=== PATIENT | female | born 1985 | race Caucasian/White ===

== ENCOUNTER 2019-01-30 21:43 | Emergency (ER) | payer OTHER, MEDICAID, SELFPAY ==
[2019-01-30 22:09] VITALS: BP 113/72; PULSE 78; RESP 18; TEMP 37.7; O2SAT 99
--- NOTE | 2019-01-31 01:58 | ED_ITS ---
HPI - Skin/Abscess/Foreign Bdy General Chief complaint: Skin/Abscess/Foreign Body Stated complaint: WOUNDS UNDER ARMS Time Seen by Provider: 01/30/19 21:55 Source: patient Mode of arrival: Ambulatory Limitations: no limitations History of Present Illness HPI narrative: 33-year-old female daily smoker with history of methamphetamine abuse (smoking) presents with a chief complaint of painful red bumps in her right axilla. She has a small 1 on her left armpit as well but the right side is much worse. She has a low-grade fever in complains of some spontaneous drainage from the right side. She had recently been feeling under the weather for a few days and did not shave her armpits but after 5 days did, she normally does daily. She denies any history of skin infection MD complaint: rash and abscess/boil Onset (ago): day(s) Tetanus up to date: yes Location: RUE Severity: moderate Quality: aching Pain Consistency: constant Exacerbating factors: movement Context: none Associated symptoms: denies other symptoms Treatments prior to arrival: none Related Data Home Medications Medication Instructions Recorded Confirmed insulin aspart U-100 [Novolog #0 07/17/17 U-100 Insulin aspart] insulin glargine [Lantus U-100 #0 07/17/17 Insulin] lisinopril 5 mg PO QDAY #0 07/17/17 Previous Rx's Medication Instructions Recorded doxycycline hyclate 100 mg PO BID #20 tab 01/31/19 Allergies Allergy/AdvReac Type Severity Reaction Status Date / Time No Known Allergies Allergy Uncoded 08/14/17 12:51 Review of Systems Constitutional Constitutional: Denies chills, Denies fatigue, Denies fever(s), Denies frequent falls, Denies lethargy and Denies weakness Eyes Eyes: Denies change in vision, Denies eye discharge, Denies irritation and Denies loss of vision ENT Ears, Nose, Mouth, and Throat: Denies change in voice, Denies dizziness, Denies neck pain, Denies sore throat and Denies throat swelling Cardiovascular Cardiovascular: Denies chest pain, Denies irregular heart rhythm, Denies lightheadedness, Denies palpitations, Denies dyspnea, Denies dyspnea on exertion and Denies orthopnea Respiratory Respiratory: Denies cough, Denies dyspnea, Denies dyspnea on exertion and Denies wheezing Gastrointestinal Gastrointestinal: Denies abdominal pain, Denies change in bowel habits, Denies diarrhea, Denies nausea and Denies vomiting Genitourinary Genitourinary: Denies hematuria, Denies flank pain, Denies urinary incontinence and Denies urinary urgency Musculoskeletal Musculoskeletal: Denies back pain, Denies muscle weakness, Denies neck pain, Denies numbness and Denies tingling Integumentary/Breasts Skin/Breast: Denies pruritus, Reports erythema, Denies rash, Reports skin pain, Reports skin swelling and Denies wounds Neurologic Neurologic: Denies behavioral changes, Denies confusion, Denies dizziness, Denies frequent falls, Denies loss of vision, Denies numbness, Denies tingling and Denies weakness Psychiatric Psychiatric: Denies anxiety, Denies behavioral changes, Denies confusion, Denies depression, Denies homicidal ideation and Denies suicidal ideation Endocrine Endocrine: Denies fatigue, Denies flushing and Denies palpitations Hematologic/Lymphatic Hematologic/Lymphatic: Denies easy bruising Allergic/Immunologic Allergic/Immunologic: Denies urticaria, Denies throat swelling and Denies wheezing [facility] Social History Smoking Status: Current every day smoker Social History Smoking Status: Current every day smoker Exam Narrative Exam Narrative: GEN: AOx3 and in mild distress EYES: Pupils are equal, round, and reactive to light and accommodation. Extraocc ular muscles are intact bilaterally. There is no subconjunctival hemorrhage or exudate. CHEST: Lungs are clear to auscultation bilaterally and free of wheezes, rales, or rhonchi. Heart rate is regular rhythm, there are no murmurs, clicks, rubs, or gallops. There is no chest wall tenderness. ABD: Abdomen is soft and nontender. There is no guarding or rebound. Bowel sounds are normal in all 4 quadrants. There is no mass or organomegaly. EXT: Full painless ROM of all extremities with no loss of sensation or strength. SKIN: Right axilla has 2 areas of induration, erythema, warmth and swelling. There is some spontaneous drainage from 1 lesion which had been cultured by nursing prior. These are easily palpable not particularly deep. Initial Vital Signs Initial Vital Signs: Vital Signs Temperature 99.9 F H 01/30/19 22:09 Pulse Rate 78 01/30/19 22:09 Respiratory Rate 18 01/30/19 22:09 Blood Pressure 113/72 01/30/19 22:09 Pulse Oximetry 99 01/30/19 22:09 Procedures Abscess I/D Site: other (Axilla) Side (if applicable): right Local Anesthetic: lidocaine 1% and with bicarb Amount of anesthesia used (mL): 4 Technique: incised with #11 blade Amount of fluid expressed (mL): 3 Irrigation: No Packing used?: none Complications: pain Course Orders Ordered: ED Orders 01/30/19 22:01 Wound Culture and Gram Stain Stat Discontinued Medications Hydrocodone Bitart/Acetaminophen (Vicodin Prepack) 1 bottle MISC SEEINSTR ONE Stop: 01/31/19 02:20 Last Admin: 01/31/19 02:25 Dose: 1 bottle Documented by: ISMAEL Doxycycline Hyclate (Vibramycin) 100 mg PO NOW ONE Stop: 01/31/19 02:02 Last Admin: 01/31/19 02:19 Dose: 100 mg Documented by: ISMAEL Lidocaine/Sodium Bicarbonate (Buffered Lidocaine 10 Ml Syr) 10 ml INJ NOW ONE Stop: 01/31/19 02:02 Last Admin: 01/31/19 02:19 Dose: 10 ml Documented by: ISMAEL Vital Signs Vital signs: Vital Signs - 8 hr 01/31/19 02:25 Temperature 99.1 F Pulse Rate 70 Respiratory Rate 18 Blood Pressure 112/69 Pulse Oximetry 99 Discharge Plan Departure Patient Disposition: Home Clinical Impression: Abscess of skin or subcutaneous tissue Qualifiers: Site of cutaneous abscess: extremity Site of cutaneous abscess of extremity: upper extremity Laterality: right Qualified Code(s): L02.413 - Cutaneous abscess of right upper limb Discharge Date/Time: 01/31/19 02:25 Instructions: DI for Skin Abscess Activity Restrictions/Additional Instructions: *You have been diagnosed with [bilateral axillary abscess with cellulitis] *What to do: *Take medications as directed *Follow up with your primary care provider in 2-3 days, call for an appointment. Let them know you were seen in the Emergency Department and that we ask that you be seen in follow up *Return to ER if you should have any new, worsening or concerning symptoms Prescriptions: New doxycycline hyclate 100 mg tablet 100 mg PO BID Qty: 20 RF: 0 No Action insulin glargine [Lantus U-100 Insulin] 100 UNIT/1 ML solution Qty: 0 RF: 0 insulin aspart U-100 [Novolog U-100 Insulin aspart] 100 UNIT/1 ML solution Qty: 0 RF: 0 lisinopril 5 MG tablet 5 mg PO QDAY Qty: 0 RF: 0 Referrals: Shelly Scott MD [Physician] -
[2019-01-31] MEDS: LIDO 1%/SOD BICARB 8.4% (10ML) 10 ML SYRINGE INJ (02:19)
[2019-01-31] MEDS: DOXYCYCLINE HYCLATE 100 MG TABLET PO (02:19)
[2019-01-31 02:25] VITALS: BP 112/69; PULSE 70; RESP 18; TEMP 37.3; O2SAT 99
[2019-01-31] MEDS: HYDROCODONE/ACET 5/325 PREPACK 1 BOTTLE MISC (02:25)
== END 2019-01-31 02:25 | disposition home or self-care (01) ==
PROVIDERS: Emergency Provider Emergency Medicine
DX: L02.413 Cutaneous abscess of right upper limb (principal)
CPT/HCPCS: 10060; 87070; 87075; 87077; 87147; 87186; 87205; 99282; 99283